=== PATIENT | female | born 1965 | race Hispanic/Latino ===

== ENCOUNTER 2017-11-16 03:21 | Emergency (ER) | payer SELFPAY ==
[2017-11-16 04:08] LABS: BASOPHILS % (AUTO) 0.5 % (0.0-5.0); HEMATOCRIT 40.6 % (36-48); LYMPHOCYTES % (AUTO) 34.9 % (21.0-51.0); MEAN CORPUSCULAR HEMOGLOBIN 31.7 pg (27.0-33.0); MEAN CORPUSCULAR HGB CONC 34.8 g/dL (32.0-36.0); MEAN CORPUSCULAR VOLUME 91.2 fL (79-99); MONOCYTES % (AUTO) 5.9 % (3.0-13.0); NEUTROPHILS % (AUTO) 56.7 % (40.0-77.0); PLATELET COUNT (AUTO) 215 K/uL (130-400); RED BLOOD CELL COUNT(AUTO) 4.45 MIL/uL (4.00-5.50); RED CELL DISTRIBUTION WIDTH 12.9 % (11.0-15.5); WHITE BLOOD COUNT (AUTO) 11.4 K/uL (4.8-10.8)
[2017-11-16] MEDS ORDERED: ONDANSETRON HCL 4 MG/2 ML VIAL ONE (04:08)
[2017-11-16 04:30] LABS: CREATININE 0.6 mg/dL (0.5-1.5); POTASSIUM 4.6 mmol/L (3.5-5.1)
[2017-11-16 04:35] LABS: ALBUMIN 4.4 g/dL (3.5-5.0); BILIRUBIN,TOTAL 0.6 mg/dL (0.2-1.0); TOTAL PROTEIN, SERUM 7.9 g/dL (6.0-8.3)
[2017-11-16] MEDS ORDERED: LIDOCAINE HCL 2% VISCOUS 15 ML UDCUP ONE (05:16)
[2017-11-16] MEDS ORDERED: FAMOTIDINE/PF 20 MG/2 ML VIAL IV ONE (05:17)
[2017-11-16] MEDS ORDERED: MAG HYDROX/AL HYDROX/SIMETH ES 30 ML SUSP UDCUP ONE (05:17)
== END 2017-11-16 06:36 | disposition home or self-care (01) ==
LOC: EDH 03:21
DX: R10.30 Lower abdominal pain, unspecified (principal); R11.2 Nausea with vomiting, unspecified; I10 Essential (primary) hypertension
CPT/HCPCS: 36415; 80053; 82150; 83690; 85025; 93005; 96374; 96375; 99285; J2405; J3490

== ENCOUNTER 2018-05-15 21:51 | Emergency (ER) | payer OTHER | END 2018-05-15 22:20 | disposition home or self-care (01) | LOC: EDH 21:51 | DX: M54.16 Radiculopathy, lumbar region (principal); I10 Essential (primary) hypertension | CPT/HCPCS: 99281 ==